=== PATIENT | female | born 1950 | race Caucasian/White ===

== ENCOUNTER 2017-05-31 08:08 | Day surgery (SDC) | payer OTHER, BC ==
[2017-05-28 15:24] VITALS: BMI 38.7
[2017-05-31] MEDS ORDERED: LIDOCAINE HCL/PF 2% SDV 5ML VIAL ONE (08:13)
[2017-05-31] MEDS ORDERED: PROPOFOL 20 ML ONE ×2 (08:13)
[2017-05-31 08:35] VITALS: TEMP 97.7
[2017-05-31 09:58] VITALS: BP 151/78; PULSE 71
--- NOTE | 2017-06-01 15:43 | PATH ---
Surgical Pathology Report Patient Name: FAITH JUAREZ [facility]. Rec. #: [id number] /Age/Gender: 1950 (Age: 67) / F Account: [id number] Location: [facility]-ENDOSCOPY Taken: 05/31/2017 Received: 05/31/2017 Reported: 06/01/2017 Physicians: [place] Muhammad M.D. Specimen(s) Received A: BX 40CM COLON B: BX 35CM COLON Clinical History Polyps Final Diagnosis A. 40 CM, BIOPSY: HYPERPLASTIC POLYP. B. 35 CM, BIOPSY: TUBULAR ADENOMA. Electronically Signed Taty Quick M.D. Gross Description A. Received in formalin, labeled "40 cm" is a davis, irregular portion of soft tissue measuring 0.2 cm. in greatest dimension. The specimen is submitted in toto in one cassette. B. Received in formalin, labeled "35 cm" is a davis, irregular portion of soft tissue measuring 0.8 cm. in greatest dimension. The specimen is bisected and submitted in toto in one cassette. [facility]/05/31/2017 [facility]/05/31/2017
== END 2017-05-31 09:55 | disposition home or self-care (01) ==
LOC: FASU-ENDO 08:08
PROVIDERS: ATTEND Internal Medicine Gastroenterology
PROC: 0DBN8ZX Excision of Sigmoid Colon, Via Natural or Artificial Opening Endoscopic, Diagnostic (ICD-10-PCS; principal; 2017-05-31 08:52)
PROC: 0DBN8ZX Excision of Sigmoid Colon, Via Natural or Artificial Opening Endoscopic, Diagnostic (ICD-10-PCS; 2017-05-31 08:52)
DX: Z86.010 Personal history of colon polyps (principal); D12.5 Benign neoplasm of sigmoid colon; K63.5 Polyp of colon; K57.30 Diverticulosis of large intestine without perforation or abscess without bleeding
CPT/HCPCS: 88305-TC

== ENCOUNTER 2017-10-24 12:44 | Emergency (ER) | payer OTHER, BC ==
[2017-10-24 13:01] VITALS: BP 129/86; PULSE 99; TEMP 98.3; BMI 38.4
--- NOTE | 2017-10-24 13:01 | PDOC ---
History of Present Illness <Vince Griffith - Last Filed: 10/24/17 15:37> - General History Source: Patient (The patient is a 67 year old female, with a significant past medical history of hypercholesterolemia, obesity, who presents to the emergency department via walk-in, complaining of left knee pain and right chest soreness s/p fall approx. one day ago. The patient reports she was walking last night when she tripped and fell forward landing on her right chest and left knee. She denies head injury or loss of consciousness. The patient reports the left knee pain and right chest soreness persisted today so she decided to come to the ED for evaluation. She denies any dizziness, chest pain, diaphoresis or shortness of breath before falling. She denies any recent numbness, tingling or loss of sensation. She denies any recent fever, chills, headache or dizziness. She denies any recent nausea, vomiting, constipation or diarrhea. She denies any recent chest pain or shortness of breath. ) Exam Limitations: No Limitations <Felix Wallis - Last Filed: 10/24/17 16:57> - General Chief Complaint: Injury Stated Complaint: LEFT LEG PAIN S/P FALL Time Seen by Provider: 10/24/17 12:46 Past History - Past Medical History Anemia: No Asthma: No Cancer: No Cardiac Disorders: No CVA: No COPD: No CHF: No Dementia: No Diabetes: No GI Disorders: No Disorders: No HTN: No Hypercholesterolemia: Yes Liver Disease: No Seizures: No Thyroid Disease: No - Surgical History Abdominal Surgery: Yes Appendectomy: No Cardiac Surgery: No Cholecystectomy: Yes (LAPAROSCOPIC) Lung Surgery: No Neurologic Surgery: No Orthopedic Surgery: No - Immunization History Immunization Up to Date: Yes - Suicide/Smoking/Psychosocial Hx Smoking History: Former smoker Have you smoked in the past 12 months: No If you are a former smoker, when did you quit?: 50 YRS AGO Information on smoking cessation initiated: No Hx Alcohol Use: No (RARE) Drug/Substance Use Hx: No Substance Use Type: None Hx Substance Use Treatment: No <Vince Griffith - Last Filed: 10/24/17 15:37> <Felix Wallis - Last Filed: 10/24/17 16:57> - Past Medical History Allergies/Adverse Reactions: Allergies Allergy/AdvReac Type Severity Reaction Status Date / Time atorvastatin calcium Allergy Severe elevated Verified 10/24/17 12:49 [From Lipitor] lftS BANANAS Allergy Mild GI UPSET Uncoded 10/24/17 12:49 Home Medications: Ambulatory Orders Pravastatin Sodium 40 mg PO DAILY tablet 12/19/16 Cholecalciferol (Vitamin D3) [Vitamin D3 -] 1,000 unit PO DAILY 05/28/17 Review of Systems - Review of Systems Constitutional: No: Chills, Diaphoresis, Fever, Weakness HEENTM: No: Eye Pain, Blurred Vision Respiratory: No: Cough, Shortness of Breath Cardiac (ROS): No: Chest Pain, Edema, Lightheadedness, Palpitations, Syncope ABD/GI: No: Abdominal Distended, Constipated, Diarrhea, Vomiting : No: Burning, Dysuria, Frequency, Hematuria Musculoskeletal: Yes: Muscle Pain (+Left knee pain. +Right chest musculoskeletal pain. ). No: Back Pain Integumentary: No: Lesions, Rash Neurological: No: Headache, Numbness, Paresthesia, Dizziness Psychiatric: No: Anxiety, Depression Endocrine: No: Intolerance to Cold, Intolerance to Heat, Unexplained Weight Gain , Unexplained Weight Loss Hematologic/Lymphatic: No: Anemia, Easy Bleeding, Easy Bruising <Felix Wallis - Last Filed: 10/24/17 16:57> *Physical Exam - Vital Signs Last Vital Signs Temp Pulse Resp BP Pulse Ox 98.3 F 99 H 20 129/86 99 10/24/17 12:44 10/24/17 12:44 10/24/17 12:44 10/24/17 12:44 10/24/17 12:44 <Vince Griffith S - Last Filed: 10/24/17 15:37> - Vital Signs Last Vital Signs Temp Pulse Resp BP Pulse Ox 98.3 F 99 H 20 129/86 99 10/24/17 12:44 10/24/17 12:44 10/24/17 12:44 10/24/17 12:44 10/24/17 12:44 - Physical Exam General Appearance: Yes: Appropriately Dressed, Obese. No: Apparent Distress HEENT: positive: LAURY, Normal ENT Inspection, Normal Voice, Symmetrical, TMs Normal, Pharynx Normal Neck: positive: Trachea midline, Supple. negative: Tender Respiratory/Chest: positive: Lungs Clear, Normal Breath Sounds. negative: Respiratory Distress, Accessory Muscle Use Cardiovascular: positive: Regular Rhythm, Regular Rate, S1, S2. negative: Edema , JVD, Murmur Gastrointestinal/Abdominal: positive: Normal Bowel Sounds, Soft, Other (Obese ) . negative: Tender, Guarding, Rebound, Tenderness Musculoskeletal: positive: Normal Inspection, Other (+Large ecchymosis area on right anterior lateral chest under right breast. ). negative: CVA Tenderness Extremity: positive: Normal Inspection, Normal Range of Motion, Tender (+Pain with palpation of left knee. ). negative: Swelling, Calf Tenderness Integumentary: positive: Normal Color, Dry, Warm Neurologic: positive: career guidance technician II-XII NML intact, Fully Oriented, Alert, Normal Mood/ Affect, Normal Response, Motor Strength 5/5 <Felix Wallis - Last Filed: 10/24/17 16:57> ED Treatment Course - RADIOLOGY Radiograph Interpretation: 10/24/17 16:21 EXAM#: TYPE/EXAM: RESULT: [id number] RAD/KNEE 3 POS-LEFT HISTORY PROVIDED: Knee injury AP and lateral projections of the left knee reveals no evidence of fracture, dislocation or acute bone or joint abnormalities. Moderate degenerative changes are present. There is fullness in the suprapatellar region consistent with a joint effusion. IMPRESSION: Moderate degenerative arthritis with suprapatellar effusion. No fracture or acute bone or joint abnormalities. Reported By: Giancarlo Esquivel MD 10/24/17 16:22 EXAM#: TYPE/EXAM: RESULT: [id number] RAD/RIBS RIGHT SIDE HISTORY PROVIDED: Trauma. AP and multiple oblique projections of the right ribs reveals no evidence of fracture or acute bony abnormalities. IMPRESSION: No fracture or acute pathology Reported By: Giancarlo Esquivel MD - Medications Given in the ED: ED Medications Discontinued Medications Generic Name Dose Route Start Last Admin Trade Name Freq PRN Reason Stop Dose Admin Ibuprofen 600 mg 10/24/17 15:46 10/24/17 15:47 Motrin - PO 10/24/17 15:47 600 mg NOW ONE Administration <Felix Wallis - Last Filed: 10/24/17 16:57> *DC/Admit/Observation/Transfer - Discharge Dispostion Admit: No <Vince Griffith - Last Filed: 02/21/18 15:37> - Attestations Scribe Attestion: 10/24/17 16:21 Documentation prepared by Felix Wallis, acting as medical anthropology director for Vince Griffith MD. <Felix Wallis - Last Filed: 10/24/17 16:57> Diagnosis at time of Disposition: Chest wall contusion Qualifiers: Encounter type: initial encounter Laterality: right Qualified Code(s): S20.211A - Contusion of right front wall of thorax, initial encounter Knee joint injury Qualifiers: Encounter type: initial encounter Laterality: left Qualified Code(s): S89.92XA - Unspecified injury of left lower leg, initial encounter - Discharge Dispostion Disposition: HOME Condition at time of disposition: Stable - Referrals Referrals: Nicolas Betancourt MD [Staff Physician] - - Patient Instructions Printed Discharge Instructions: Knee Sprain Additional Instructions: Elevation take off splint at night time. Suggest Advil gelcaps 3 times a day
[2017-10-24] MEDS ORDERED: IBUPROFEN 600 MG TABLET (FP) PO ONE ×2 (15:46→15:48)
== END 2017-10-24 15:42 | disposition home or self-care (01) ==
LOC: FER 12:44
PROC: 2W3RX1Z Immobilization of Left Lower Leg using Splint (ICD-10-PCS; principal; 2017-10-24)
DX: S20.211A Contusion of right front wall of thorax, initial encounter (principal); S89.92XA Unspecified injury of left lower leg, initial encounter; E78.00 Pure hypercholesterolemia, unspecified; E66.9 Obesity, unspecified; Z68.38 Body mass index [BMI] 38.0-38.9, adult; Z87.891 Personal history of nicotine dependence; Z88.8 Allergy status to other drugs, medicaments and biological substances; W01.0XXA Fall on same level from slipping, tripping and stumbling without subsequent striking against object, initial encounter; Y93.01 Activity, walking, marching and hiking; Y92.9 Unspecified place or not applicable
CPT/HCPCS: 29515; 71101-TC-RT-FY; 73562-TC-LT-FY; 99282-25

== ENCOUNTER 2021-06-22 07:27 | Day surgery (SDC) | payer OTHER, BC ==
[2021-06-20 14:45] VITALS: BMI 39.9
[2021-06-22] MEDS: CIPROFLOXACIN HCL 0.3% OPHTH 2.5ML BOTTLE OD SCH ×3 (07:55→08:05)
[2021-06-22] MEDS: CYCLOPENTOLATE 2% OPHTH SOLN 2 ML BOTTLE OD SCH ×3 (07:55→08:05)
[2021-06-22] MEDS: TROPICAMIDE 1% OPHTH SOLN 15 ML BOTTLE OD SCH ×3 (07:55→08:05)
[2021-06-22] MEDS: PHENYLEPHRINE 2.5% OPHTH SOLN 15 ML BOTTLE OD SCH ×3 (07:55→08:05)
[2021-06-22] MEDS ORDERED: MIDAZOLAM HCL 2 MG/2 ML SINGLE DOSE VIAL ONE (09:05)
[2021-06-22 09:42] VITALS: TEMP 98.2
[2021-06-22 09:58] VITALS: BP 134/68; PULSE 67
== END 2021-06-22 10:38 | disposition home or self-care (01) ==
LOC: FASU 07:27
PROVIDERS: ATTEND Ophthalmology
PROC: 08RJ3JZ Replacement of Right Lens with Synthetic Substitute, Percutaneous Approach (ICD-10-PCS; principal; 2021-06-22 09:13)
DX: H26.8 Other specified cataract (principal)